=== PATIENT | female | born 2000 | race Two or more races ===

== ENCOUNTER 2024-07-24 18:50 | Inpatient (IN) | payer OTHER ==
[~2024-07-24] VITALS: Ht 165.1 cm; Wt 71.2 kg
[2024-07-24 19:13] VITALS: BP 134/78
[2024-07-24] MEDS ORDERED: VALTREX1000 MG PO (19:25)
[2024-07-24] MEDS ORDERED: AMPICILLIN SODIUM 2,000 MG VIAL ONE (19:25)
[2024-07-24] MEDS ORDERED: PRENATAL TABLE1 EAC1 (19:25)
[2024-07-24] MEDS ORDERED: RINGERS SOLUTION,LACTATED 1,000 ML IV SCH (19:45)
[2024-07-24 19:50] LABS: PH,URINE 6.5 (5.0-8.0); URINE APPEARANCE Clear; URINE BILIRRUBIN Negative (NEGATIVE); URINE BLOOD Negative; URINE COLOR Yellow; URINE GLUCOSE Negative (NEGATIVE); URINE KETONE Negative (NEGATIVE); URINE LEUKOCYTE Trace; URINE NITRATE Negative; URINE PROTEIN Negative (NEGATIVE)
[2024-07-24 19:54] LABS: URINE BACTERIA 684.2 uL (0.0-1933); URINE EPITHELIAL CELLS 19.9 uL (0.0-38.8); URINE WBC 12.9 uL (0.0-23.2)
[2024-07-24] MEDS ORDERED: AMPICILLIN SODIUM 2,000 MG VIAL IV SCH (20:00)
[2024-07-24 20:03] LABS: URINE RBC 0.7 uL (0.0-20.8)
[2024-07-24 20:28] LABS: BASO % 0.3 % (0.1-1.2); EOS # 0.07 (0.04-0.54); EOS % 0.7 % (0.7-7.0); HEMATOCRIT 39.3 % (34.1-44.9); HEMOGLOBIN 13.5 g/dL (11.2-15.7); LYMPH # 1.56 (1.18-3.74); LYMPH % 14.9 % (19.3-53.1); MONO # 0.89 (0.24-0.82); MONO % 8.5 % (4.7-12.5); NEUT # 7.89 (1.56-6.13); NEUT % 75.1 % (34.0-71.1); PLATELET COUNT 145 K/uL (163-369); RED BLOOD COUNT 4.66 M/uL (3.93-5.22); RED CELL DISTRIBUTION WIDTH 13.7 % (11.6-14.4)
[2024-07-24 20:30] LABS: INR < 0.93; PARTIAL THROMBOPLASTIN TIME 30.2 SECONDS (22.0-34.0); PROTHROMBIN TIME 10.2 SECONDS (9.0-11.5)
[2024-07-24] MEDS ORDERED: MISOPROSTOL 25 MCG TABLET VAG STA (21:36)
[2024-07-24 23:17] VITALS: BP 135/83
[2024-07-25] VITALS (10 sets, daily range): BP systolic 117–136; BP diastolic 62–85
[2024-07-25] MEDS ORDERED: MORPHINE SULFATE 4 MG/ML CARTRIDGE IV PRN (01:00)
[2024-07-25] MEDS ORDERED: OXYTOCIN 20 UNITS/1000ML RL PIGGYBAG IV ONE (09:28)
[2024-07-25] MEDS ORDERED: LIDOCAINE HCL 1% 10ML VIAL ONE (09:28)
[2024-07-25] MEDS ORDERED: ERYTHROMYCIN BASE OPHT 1GM EACH TUBE OP ONE ×2 (09:28→11:00)
[2024-07-25] MEDS ORDERED: CHLORHEXIDINE GLUCONATE 120 ML BOTTLE TOP ONE ×2 (09:28→11:00)
[2024-07-25] MEDS ORDERED: LIDOCAINE HCL 1% 10ML VIAL IJ ONE (11:00)
[2024-07-25] MEDS ORDERED: OXYTOCIN 1,000 ML IV SCH ×2 (11:00→13:00)
[2024-07-25] MEDS ORDERED: ACETAMINOPHEN 500 MG GEL..CAP PO PRN (13:00)
[2024-07-25] MEDS ORDERED: CHLORHEXIDINE GLUCONATE 120 ML BOTTLE TP SCH (13:00)
[2024-07-25 14:04] LABS: BASO % 0.2 % (0.1-1.2); HEMATOCRIT 38.9 % (34.1-44.9); HEMOGLOBIN 13.1 g/dL (11.2-15.7); LYMPH # 1.08 (1.18-3.74); LYMPH % 5.7 % (19.3-53.1); MEAN CORPUSCULAR HEMOGLOBIN 28.4 pg (25.6-32.2); MONO % 4.2 % (4.7-12.5); NEUT # 16.81 (1.56-6.13); NEUT % 89.3 % (34.0-71.1); PLATELET COUNT 149 K/uL (163-369); RED BLOOD COUNT 4.62 M/uL (3.93-5.22); RED CELL DISTRIBUTION WIDTH 13.8 % (11.6-14.4)
[2024-07-26] VITALS: BP 1124/84
[2024-07-26 08:08] VITALS: BP 122/78
[2024-07-26] MEDS ORDERED: PNV,CALCIUM 72/IRON/FOLIC ACID 1 TAB TABLET PO SCH (09:00)
[2024-07-26 17:20] VITALS: BP 129/81
[2024-07-27 01:00] VITALS: BP 120/81
[2024-07-27 08:00] VITALS: BP 122/75
== END 2024-07-27 14:52 | disposition home or self-care (01) | DRG 807 ==
LOC: LDR 18:50 → OB/GYN 18:50
PROVIDERS: ADMIT Obstetrics & Gynecology; ATTEND Obstetrics & Gynecology
PROC: 3E0P7VZ Introduction of Hormone into Female Reproductive, Via Natural or Artificial Opening (ICD-10-PCS; 2024-07-24)
PROC: 4A1HXCZ Monitoring of Products of Conception, Cardiac Rate, External Approach (ICD-10-PCS; 2024-07-24)
PROC: 10E0XZZ Delivery of Products of Conception, External Approach (ICD-10-PCS; principal; 2024-07-25)
PROC: 0UQMXZZ Repair Vulva, External Approach (ICD-10-PCS; 2024-07-25)
PROC: 3E033VJ Introduction of Other Hormone into Peripheral Vein, Percutaneous Approach (ICD-10-PCS; 2024-07-25)
DX: O70.0 First degree perineal laceration during delivery (principal); Z37.0 Single live birth; O99.824 Streptococcus B carrier state complicating childbirth; Z3A.40 40 weeks gestation of pregnancy